=== PATIENT | male | born 1950 | race African-American/Black ===

== ENCOUNTER → 2022-04-27 | Outpatient (CLI) | payer MEDICARE, OTHER ==
--- NOTE | 2022-04-27 11:55 | US ---
EXAMINATION TYPE: US prostate transrectal DATE OF EXAM: 04/27/2022 COMPARISON: NONE CLINICAL HISTORY: R97.2 ELEVATED PROSTATE SPECIFIC ANTIGEN [PSA]. elevated PSA 5.7 This examination was performed using the transrectal probe. EXAM MEASUREMENTS: Gland Size: 6.7 x 4.3 x 5.9 cm Volume: 89 Predicted PSA: 10.6 Actual PSA (if available):5.7 Enlarged heterogenous multiple calcifications visualized. Initial images show a suspected some bulkiness of the bilateral seminal vesicles. Markedly enlarged p rostate gland with central calcifications is seen. No suspicious hypoechoic nodules noted on images s aved. IMPRESSION: As above. Findings consistent with BPH noted. Predicted PSA = volume x 0.12 ng/ml Calculated Volume = 0.5236 x L x W x H
== END | disposition home or self-care (01) ==
LOC: RADUSWWP 08:13
PROVIDERS: ATTEND Internal Medicine
DX: N40.0 Benign prostatic hyperplasia without lower urinary tract symptoms (principal); N42.0 Calculus of prostate; R97.20 Elevated prostate specific antigen [PSA]
CPT/HCPCS: 76872

== ENCOUNTER 2023-03-11 10:00 | Emergency (ER) | payer MEDICARE, OTHER ==
[2023-03-11 10:14] VITALS: PULSE 55; TEMP 97.5
--- NOTE | 2023-03-11 10:38 | ED ---
General Adult HPI - General Chief complaint: Dizziness Stated complaint: Dizziness Time Seen by Provider: 03/11/23 10:20 Source: patient, EMS, RN notes reviewed, old records reviewed Mode of arrival: EMS Limitations: no limitations - History of Present Illness Initial comments: This is a 72-year-old male who presents emergency department because he is g etting a little bit dizzy. Patient states he did do a lot of work this morning but he got a little bit dizzy he did not feel as though he passed out but he felt like he needed to sit down when he sat down and rested he felt better. Patient denies any chest pain or palpitations. Patient denies any difficulty breathing shortness of breath. Patient denies any recent fever chills or cough. Patient states he took his heart rate was low at [address] works so they sent him to the emergency department. Patient states sitting here he has no symptoms whatsoever. Patient states the dizziness was not a dizziness that made him feel like he was given a fall over or pass out just made him a little lightheaded he needs to sit down to recover - Related Data Home Medications Medication Instructions Recorded Confirmed Finasteride [Proscar] 5 mg PO DAILY 03/11/23 03/11/23 Ibuprofen [Motrin] 800 mg PO DAILY 03/11/23 03/11/23 Sildenafil Citrate 100 mg PO DAILY PRN 03/11/23 03/11/23 Tamsulosin [Flomax] 0.4 mg PO HS 03/11/23 03/11/23 Allergies Allergy/AdvReac Type Severity Reaction Status Date / Time Penicillins Allergy Rash/Hives Verified 03/11/23 10:45 Review of Systems ROS Statement: Those systems with pertinent positive or pertinent negative responses have been documented in the HPI. ROS Other: All systems not noted in ROS Statement are negative. Past Medical History Past Medical History: Prostate Disorder History of Any Multi-Drug Resistant Organisms: None Reported Past Surgical History: No Surgical Hx Reported Past Psychological History: No Psychological Hx Reported Smoking Status: Never smoker Past Alcohol Use History: Occasional Past Drug Use History: None Reported General Exam - General Exam Comments Initial Comments: GENERAL: Patient is well-developed and well-nourished. Patient is nontoxic and well- hydrated and is in no acute distress. ENT: Neck is soft and supple. No significant lymphadenopathy is noted. Oropharynx is clear. Moist mucous membranes. Neck has full range of motion without eliciting any pain. EYES: The sclera were anicteric and conjunctiva were pink and moist. Extraocular movements were intact and pupils were equal round and reactive to light. Eyelids were unremarkable. PULMONARY: Unlabored respirations. Good breath sounds bilaterally. No audible rales rhonchi or wheezing was noted. CARDIOVASCULAR: Patient's heart rate 45 beats a minute and regular ABDOMEN: Soft and nontender with normal bowel sounds. SKIN: Skin is clear with no lesions or rashes and otherwise unremarkable. NEUROLOGIC: Patient is alert and oriented x3. Cranial nerves II through XII are grossly intact. Motor and sensory are also intact. Normal speech, volume and content. Symmetrical smile. MUSCULOSKELETAL: Normal extremities with adequate strength and full range of motion. LYMPHATICS: No significant lymphadenopathy is noted PSYCHIATRIC: Normal psychiatric evaluation. Limitations: no limitations Course Vital Signs 03/11/23 03/11/23 10:05 11:52 Temperature 97.5 F L Pulse Rate 55 L Respiratory 18 Rate Blood Pressure 150/92 Blood Pressure 132/77 [Right Arm Sitting] Blood Pressure 120/78 [Right Arm Standing] Blood Pressure 141/81 [Right Arm Supine] O2 Sat by Pulse 100 Oximetry Medical Decision Making - Medical Decision Making EKG as interpreted by myself. EKG shows a sinus bradycardia at 40 bpm IA interval 254 QRS is 95 Q-T intervals 425 QTC is 391. Patient's EKG shows no ST segment elevation or depression. Was pt. sent in by a medical professional or institution (, [facility], SALVAGE MACHINE OPERATOR, urgent care, hospital, or intermediate...) When possible be specific @ -Patient was sent in by the primary medical care doctor. Did you speak to anyone other than the patient for history (EMS, parent, family, police, friend...)? What history was obtained from this source @ -No Did you review nursing and triage notes (agree or disagree)? Why? @ -I reviewed and agree with nursing and triage notes Were old charts reviewed (outside hosp., previous admission, EMS record, old EKG, old radiological studies, urgent care reports/EKG's, intermediate records)? Report findings @ -Patient was sent with old lab work and EKG from earlier today that I reviewed. Differential Diagnosis (chest pain, altered mental status, abdominal pain women, abdominal pain men, vaginal bleeding, weakness, fever, dyspnea, syncope, headache, dizziness, GI bleed, back pain, seizure, CVA, palpatations, mental health, musculoskeletal)? @ -Differential Dizziness: Benign paroxysmal positional Vertigo, Menieres disease, otitis media, acoustic neuroma, vertebrobasilar insufficiency, cerebellar stroke, encephalitis, hypovolemic, arrhythmia, coronary artery syndrome, anemia, this is not meant to be an all-inclusive list EKG interpreted by me (3pts min.). @ -As above X-rays interpreted by me (1pt min.). @ -Chest x-ray shows no acute abnormality CT interpreted by me (1pt min.). @ -None done U/S interpreted by me (1pt. min.). @ -None done What testing was considered but not performed or refused? (CT, X-rays, U/S, labs)? Why? @ -None What meds were considered but not given or refused? Why? @ -None Did you discuss the management of the patient with other professionals (professionals i.e. , PA, SALVAGE MACHINE OPERATOR, lab, RT, psych nurse, social work faculty member, nut sifter, te acher, third officer, geriatric case manager)? Give summary @ -No Was smoking cessation discussed for >3mins.? @ -No Was critical care preformed (if so, how long)? @ -No Were there social determinants of health that impacted care today? How? (Homelessness, low income, unemployed, alcoholism, drug addiction, transportation, low edu. Level, literacy, decrease access to med. care, usp, rehab)? @ -No Was there de-escalation of care discussed even if they declined (Discuss DNR or withdrawal of care, Hospice)? DNR status @ -No What co-morbidities impacted this encounter? (DM, HTN, Smoking, COPD, CAD, Cancer, CVA, ARF, Chemo, Hep., AIDS, mental health diagnosis, sleep apnea, morbid obesity)? @ -None Was patient admitted / discharged? Hospital course, mention meds given and rou te, prescriptions, significant lab abnormalities, going to OR and other pertinent info. @ -Patient was ambulatory throughout the ER and had no symptoms while in the emergency department. His heart rate didn't want to get down to 48 beats a minute. Patient was asymptomatic during that time. Patient did state he takes Flomax and I instructed him that he should be taking that in the evening before bed. Patient should also remain hydrated. Patient is to follow-up with primary medical care doctor to see if symptoms persist. And will follow-up for the bradycardia with cardiology or his primary medical care doctor to get a monitor. for Undiagnosed new problem with uncertain prognosis? @ -No Drug Therapy requiring intensive monitoring for toxicity (Heparin, Nitro, Insulin, Cardizem)? @ -No Were any procedures done? @ -No Diagnosis/symptom? @ -Dizziness Acute, or Chronic, or Acute on Chronic? @ -Acute Uncomplicated (without systemic symptoms) or Complicated (systemic symptoms)? @ -Complicated Side effects of treatment? @ -No Exacerbation, Progression, or Severe Exacerbation? @ -No Poses a threat to life or bodily function? How? (Chest pain, [place], [place], pneumonia, PE, COPD, DKA, ARF, appy, cholecystitis, CVA, Diverticulitis, Homicidal, Suicidal, threat to staff... and all critical care pts) @ -No Diagnosis/symptom? @ -Bradycardia Acute, or Chronic, or Acute on Chronic? @ -Acute Uncomplicated (without systemic symptoms) or Complicated (systemic symptoms)? @ -Complicated Side effects of treatment? @ -none Exacerbation, Progression, or Severe Exacerbation] @ -no Poses a threat to life or bodily function? @ -no - Lab Data Result diagrams: 03/11/23 10:37 03/11/23 10:37 Lab Results 03/11/23 03/11/23 03/11/23 Range/Units 10:37 10:37 10:37 WBC 3.0 L (3.8-10.6) k/uL RBC 4.33 (4.30-5.90) m/uL Hgb 12.6 L (13.0-17.5) gm/dL Hct 39.5 (39.0-53.0) % MCV 91.2 (80.0-100.0) fL MCH 29.0 (25.0-35.0) pg MCHC 31.8 (31.0-37.0) g/dL RDW 13.0 (11.5-15.5) % Plt Count 207 (150-450) k/uL MPV 7.9 Neutrophils % 50 % Lymphocytes % 39 % Monocytes % 5 % Eosinophils % 2 % Basophils % 1 % Neutrophils # 1.5 (1.3-7.7) k/uL Lymphocytes # 1.2 (1.0-4.8) k/uL Monocytes # 0.2 (0-1.0) k/uL Eosinophils # 0.1 (0-0.7) k/uL Basophils # 0.0 (0-0.2) k/uL Sodium 140 (137-145) mmol/L Potassium 5.0 (3.5-5.1) mmol/L Chloride 103 (98-107) mmol/L Carbon Dioxide 26 (22-30) mmol/L Anion Gap 11 mmol/L BUN 25 H (9-20) mg/dL Creatinine 1.25 (0.66-1.25) mg/dL Est GFR (CKD-EPI)AfAm 66 (>60 ml/min/1.73 sqM) Est GFR (CKD-EPI)NonAf 57 (>60 ml/min/1.73 sqM) Glucose 75 (74-99) mg/dL Calcium 9.4 (8.4-10.2) mg/dL Magnesium 2.2 (1.6-2.3) mg/dL Total Bilirubin 0.8 (0.2-1.3) mg/dL AST 25 (17-59) U/L ALT 20 (4-49) U/L Alkaline Phosphatase 84 (38-126) U/L Troponin I <0.012 (0.000-0.034) ng/mL Total Protein 8.3 H (6.3-8.2) g/dL Albumin 4.5 (3.5-5.0) g/dL TSH 0.706 (0.465-4.680) mIU/L Disposition Clinical Impression: Dizziness, Bradycardia Disposition: HOME SELF-CARE Condition: Good Instructions (If sedation given, give patient instructions): Dizziness (ED), Bradycardia (ED) Additional Instructions: Patient should follow-up with the primary medical care doctor for the bradycardia and dizziness. Patient should take his Flomax in the evening instead of the morning. Is patient prescribed a controlled substance at d/c from ED?: No Referrals: Neena Logan MD [Primary Care Provider] - 1-2 days Time of Disposition: 12:59
--- NOTE | 2023-03-11 10:53 | XR ---
EXAMINATION TYPE: XR chest 2V DATE OF EXAM: 03/11/2023 COMPARISON: None INDICATION: Chest pain low blood pressure TECHNIQUE: Single frontal view of the chest is obtained. FINDINGS: The heart size is normal. The pulmonary vasculature is normal. The lungs are clear. Spondylosis is through the thoracic spine. IMPRESSION: 1. No acute pulmonary process.
[2023-03-11 10:59] LABS: Basophils % (A) 1 %; Eosinophils # (A) 0.1 k/uL (0-0.7); Eosinophils % (A) 2 %; HCT 39.5 % (39.0-53.0); HGB 12.6 gm/dL (13.0-17.5); Lymphocytes # (A) 1.2 k/uL (1.0-4.8); Lymphocytes % (A) 39 %; MCHC 31.8 g/dL (31.0-37.0); MCV 91.2 fL (80.0-100.0); Mean Platelet Volume 7.9; Monocytes # (A) 0.2 k/uL (0-1.0); Monocytes % (A) 5 %; Neutrophils # (A) 1.5 k/uL (1.3-7.7); Neutrophils % (A) 50 %; Platelet Count 207 k/uL (150-450); RBC 4.33 m/uL (4.30-5.90)
[2023-03-11 11:51] LABS: ALT 20 U/L (4-49); AST 25 U/L (17-59); African American GFR (CKD) 66 (>60 ml/min/1.73 sqM); Albumin 4.5 g/dL (3.5-5.0); Alkaline Phosphatase 84 U/L (38-126); Anion Gap 11 mmol/L; Blood Urea Nitrogen 25 mg/dL (9-20); Calcium 9.4 mg/dL (8.4-10.2); Carbon Dioxide 26 mmol/L (22-30); Chloride 103 mmol/L (98-107); Glucose 75 mg/dL (74-99); Magnesium 2.2 mg/dL (1.6-2.3); Non-African American GFR(CKD) 57 (>60 ml/min/1.73 sqM); Sodium 140 mmol/L (137-145); Total Bilirubin 0.8 mg/dL (0.2-1.3); Total Protein 8.3 g/dL (6.3-8.2)
[2023-03-11 13:34] VITALS: BP 142/80; RESP 20
== END 2023-03-11 13:16 | disposition home or self-care (01) ==
LOC: EC 10:00
DX: R42 Dizziness and giddiness (principal); R00.1 Bradycardia, unspecified; Z88.0 Allergy status to penicillin
CPT/HCPCS: 36415; 71046; 80053; 83735; 84443; 84484; 85025; 93005; 99285

== ENCOUNTER → 2023-08-12 | Outpatient (CLI) | payer MEDICARE, OTHER ==
[2023-08-12 08:07] LABS: African American GFR (CKD) 59 (>60 ml/min/1.73 sqM); Blood Urea Nitrogen 20 mg/dL (9-20); Non-African American GFR(CKD) 51 (>60 ml/min/1.73 sqM)
--- NOTE | 2023-08-12 08:56 | CT ---
EXAMINATION TYPE: CT angio head neck CT DLP: 1508.7 mGycm, Automated exposure control for dose reduction was used. DATE OF EXAM: 08/12/2023 8:48 AM COMPARISON: None. CLINICAL INDICATION:Male, 72 years old with history of C85.98 LYMPHOMA; PHH, dizzy TECHNIQUE: Axially acquired helical CT angiogram of the head and neck was obtained with contrast. Axi al images are supplemented with 3D reconstructions and MIP images which were post-processed at an in dependent workstation. NASCET criteria used. Contrast used:65 mL of Isovue 370 with IV Contrast, Oral contrast used: None. FINDINGS: CTA HEAD: No evidence of acute intracranial hemorrhage, mass effect, or midline shift. The ventricles, sulci, a nd cisterns are unremarkable. The visualized portions of the internal carotid arteries, middle cerebral arteries, anterior cerebral arteries, and posterior cerebral arteries are patent. origin of the right posterior cerebral a rtery. The basilar and vertebral arteries are patent. CTA NECK: Right Carotid System: The common carotid artery and external carotid artery are patent. The carotid bifurcation demonstrate s no evidence of hemodynamically significant stenosis. The remaining portions of the internal carotid artery demonstrate normal size without significant narrowing. Left Carotid System: The common carotid artery and external carotid artery are patent. The carotid bifurcation demonstrate s no evidence of hemodynamically significant stenosis. The remaining portions of the internal carotid artery demonstrate normal size without significant narrowing. Vertebral arteries are patent without evidence hemodynamically significant stenosis. There is a three-vessel aortic arch. The origins of the great vessels are patent. No evidence of hemo dynamically significant stenosis. Upper thorax: Mild paraseptal emphysema changes are seen throughout the upper lungs. IMPRESSION: 1. No evidence of dissection of the cervical internal carotid arteries or vertebral arteries or any e vidence of significant stenosis at the carotid bifurcations. 2. No evidence of intracranial high-grade stenosis or intracranial aneurysm.
== END | disposition home or self-care (01) ==
LOC: RADCTMAIN 06:59
PROVIDERS: ATTEND Family Medicine
DX: R42 Dizziness and giddiness (principal); C85.98 Non-Hodgkin lymphoma, unspecified, lymph nodes of multiple sites; R00.1 Bradycardia, unspecified
CPT/HCPCS: 82565; 84520; 70496; 70498; 36415; Q9967

== ENCOUNTER → 2023-08-14 | Outpatient (CLI) | payer MEDICARE, OTHER ==
--- NOTE | 2023-08-15 07:31 | CA ---
Transthoracic Echo Report Name: Gino Palmer Age: 72 Gender: M : 1950 Exam Date: 08/14/2023 13:03 Exam Location: [facility] Ht (in): 72 Wt (lb): 190 Ordering Physician: Mayo Martin MD Attending/Referring Phys: Mario HAYNES Lighting Equipment Operator Carmel Beltran RDCS Procedure CPT: Indications: R00.1,R42 DIZZINESS Cardiac Hx: Technical Quality: Good Contrast 1: Total Dose (mL): Contrast 2: Total Dose (mL): MEASUREMENTS (Male / Female) Normal Values 2D ECHO LV Diastolic Diameter PLAX 5.4 cm 4.2 - 5.9 / 3.9 - 5.3 cm LV Systolic Diameter PLAX 3.8 cm IVS Diastolic Thickness 1.0 cm 0.6 - 1.0 / 0.6 - 0.9 cm LVPW Diastolic Thickness 1.1 cm 0.6 - 1.0 / 0.6 - 0.9 cm LV Relative Wall Thickness 0.4 RV Internal Dim ED PLAX 3.2 cm LVOT Diameter 2.1 cm Aortic Root Diameter 3.7 cm LV Diastolic Volume MOD BP 134.6 cm??? 67 - 155 / 56 - 104 cm??? LV Systolic Volume MOD BP 75.2 cm??? 22 - 58 / 19 - 49 cm??? LV Ejection Fraction MOD BP 44.1 % >= 55 % LV Cardiac Index MOD BP 1723.3 cm???/min???m??? LV Diastolic Volume MOD 4C 130.7 cm??? LV Systolic Volume MOD 4C 81.6 cm??? LV Ejection Fraction MOD 4C 37.5 % LV Cardiac Index MOD 4C 1423.0 cm???/min???m??? LV Diastolic Length 4C 9.1 cm LV Systolic Length 4C 7.4 cm LV Diastolic Volume MOD 2C 132.8 cm??? LV Systolic Volume MOD 2C 67.0 cm??? LV Ejection Fraction MOD 2C 49.5 % LV Cardiac Index MOD 2C 1909.2 cm???/min???m??? LV Diastolic Length 2C 8.7 cm LV Systolic Length 2C 7.1 cm Ascending Aorta Diameter 3.9 cm DOPPLER AV Peak Velocity 137.1 cm/s AV Peak Gradient 7.5 mmHg AV Mean Velocity 91.8 cm/s AV Mean Gradient 3.8 mmHg AV Velocity Time Integral 29.4 cm LVOT Peak Velocity 95.1 cm/s LVOT Peak Gradient 3.6 mmHg LVOT Velocity Time Integral 20.9 cm LVOT Stroke Volume 74.8 cm??? LVOT Stroke Volume Index 35.9 ml/m??? LVOT Cardiac Index 2172.4 cm???/min???m??? AV Area Cont Eq vti 2.5 cm??? AV Area Cont Eq pk 2.5 cm??? Mitral E Point Velocity 32.1 cm/s Mitral A Point Velocity 58.3 cm/s Mitral E to A Ratio 0.6 MV Deceleration Time 398.1 ms MV E' Velocity 3.0 cm/s Mitral E to MV E' Ratio 10.5 TR Peak Velocity 224.1 cm/s TR Peak Gradient 20.1 mmHg Right Atrial Pressure 5.0 mmHg Pulmonary Artery Systolic Pressu 25.1 mmHg Right Ventricular Systolic Press 25.1 mmHg PV Peak Velocity 71.4 cm/s PV Peak Gradient 2.0 mmHg FINDINGS Left Ventricle Left ventricular ejection fraction is estimated at 40-45 %. Moderately increased left ventricular systolic volume. Moderately decreased left ventricular ejection fraction. Left ventricular wall thickness normal. Right Ventricle Normal right ventricular size and function. Right ventricular systolic pressure within normal limits. Right Atrium Mild right atrial dilatation. Left Atrium Mild left atrial dilatation. Mitral Valve Structurally normal mitral valve. No evidence for mitral valve prolapse. No mitral stenosis. Mild mitral regurgitation. Aortic Valve Trileaflet aortic valve. No aortic valve stenosis or regurgitation. Tricuspid Valve Structurally normal tricuspid valve. No tricuspid stenosis. Mild tricuspid regurgitation. Pulmonic Valve Pulmonic valve not well visualized. No pulmonic stenosis. No pulmonic regurgitation. Pericardium No pericardial effusion. Aorta Normal size aortic root and proximal ascending aorta. CONCLUSIONS 1. Moderate global hypokinesis 2. Mild mitral and tricuspid regurgitation with no evidence of pulmonary hypertension Previewed by: Dr. Kacy Wheeler MD (Electronically Signed) Final Date: 15 Aug 2023 07:30
== END | disposition home or self-care (01) ==
LOC: RADECHMAIN 12:52
PROVIDERS: ATTEND Family Medicine
DX: I08.1 Rheumatic disorders of both mitral and tricuspid valves (principal)
CPT/HCPCS: 93306

== ENCOUNTER → 2023-08-15 | Outpatient (CLI) | payer MEDICARE, OTHER ==
--- NOTE | 2023-08-15 17:56 | US ---
EXAMINATION TYPE: US kidneys/renal and bladder DATE OF EXAM: 08/15/2023 COMPARISON: NONE CLINICAL INDICATION: Male, 72 years old with history of R350 FREQUENT URINATION EXAM MEASUREMENTS: Right Kidney: 10.1 x 4.9 x 4.8 cm Left Kidney: 10.1 x 6.0 x 5.1 cm Right Kidney: no hydronephrosis or masses seen Left Kidney: no hydronephrosis or masses seen Bladder: wnl Bilateral Jets seen: no There is no evidence for hydronephrosis at this point in time. No nephrolithiasis is seen. No diane s are identified. The urinary bladder is anechoic. IMPRESSION: No significant abnormality seen in the kidneys or urinary bladder.
== END | disposition home or self-care (01) ==
LOC: RADECHMAIN 08:10
PROVIDERS: ATTEND Family Medicine
DX: R00.1 Bradycardia, unspecified (principal); R42 Dizziness and giddiness
CPT/HCPCS: 76770; 93225; 93226